=== PATIENT | male | born 1975 | race Caucasian/White ===

== ENCOUNTER 2021-01-02 13:32 | Inpatient (IN) | payer OTHER ==
[~2021-01-02] VITALS: Ht 172.7 cm; Wt 87.5 kg
[2021-01-02 15:10] LABS: CHLORIDE 98 mEq/L (98-107)
[2021-01-02 15:12] LABS: HEMATOCRIT. 35.1 % (42.0-52.0); MEAN CORPUSCULAR HEMOGLOBIN 31.4 pg (28.0-32.0); PLATELET 303 x1000/uL (130-400); RED BLOOD CELL COUNT 3.81 mill/uL (4.7-6.1); RED CELL DISTRIBUTION WIDTH 13.5 % (11.6-14.6)
[2021-01-02 16:15] LABS: PLATELET ESTIMATE NORMAL
[2021-01-02] MEDS ORDERED: SODIUM CHLORIDE 0.9% 1,000 ML IV ONE (16:15)
[2021-01-02] MEDS ORDERED: AZITHROMYCIN 500 MG in DEXT 5% WATER 250 ML IV SCH (16:30)
[2021-01-02] MEDS ORDERED: CEFTRIAXONE 1 G PREMIX 50 ML IV ONE (16:30)
[2021-01-02 23:55] VITALS: BP 136/78
[2021-01-03] VITALS: BP 134/88
[2021-01-03] MEDS ORDERED: ALBUTEROL 6.7GM HFA INHALER ORI PRN
[2021-01-03] MEDS ORDERED: GUAIFENESIN 200MG/10ML SUGAR FREE UDC PO PRN
[2021-01-03] MEDS ORDERED: ONDANSETRON HCL 4MG/2ML INJ IV PRN
[2021-01-03] MEDS ORDERED: CLONIDINE 0.1MG TABLET PO PRN
[2021-01-03] MEDS ORDERED: MORPHINE SULFATE 2 MG/ML CPJ (NOT FOR IM USE) IV PRN
[2021-01-03] MEDS ORDERED: LORAZEPAM 2MG/ML CPJ IV PRN
[2021-01-03] MEDS ORDERED: HYDROCODONE/ACETAMINOPHEN 5/325MG TABLET PO PRN
[2021-01-03] MEDS ORDERED: DOCUSATE SODIUM 100MG CAPSULE PO PRN
[2021-01-03] MEDS ORDERED: ACETAMINOPHEN 325MG TABLET PO PRN
[2021-01-03] MEDS ORDERED: DIPHENHYDRAMINE 50MG/ML VIAL IV PRN
[2021-01-03] MEDS ORDERED: MAGNESIUM/ALUMINUM HYDROXIDE/SIMETHICONE 30ML UDC PO PRN
[2021-01-03] MEDS ORDERED: DIVA250T45 PO (00:22)
[2021-01-03] MEDS ORDERED: OLAN20TA34 PO (00:22)
[2021-01-03] MEDS ORDERED: DIVA-73 PO (00:22)
[2021-01-03] MEDS: ENOXAPARIN 40MG/0.4ML SYR SUBCUT SCH (00:57)
[2021-01-03 04:00] VITALS: BP 124/78
[2021-01-03] MEDS: SODIUM CHLORIDE 0.9% INJ 3ML FLUSH IVF SCH ×3 (06:23→21:05)
[2021-01-03 06:41] LABS: HEMATOCRIT. 38.7 % (42.0-52.0); HEMOGLOBIN. 13.1 g/dL (14.0-18.0); MEAN CORPUSCULAR HEMOGLOBIN 31.4 pg (28.0-32.0); MEAN CORPUSCULAR VOLUME 92.9 fL (80.0-94.0); MEAN PLATELET VOLUME 6.8 fl (7.4-10.4); PLATELET 341 x1000/uL (130-400); RED BLOOD CELL COUNT 4.16 mill/uL (4.7-6.1); RED CELL DISTRIBUTION WIDTH 13.7 % (11.6-14.6)
[2021-01-03 08:00] VITALS: BP 143/98
[2021-01-03 08:15] LABS: CHLORIDE 100 mEq/L (98-107)
[2021-01-03] MEDS ORDERED: CEFTRIAXONE 1 G PREMIX 50 ML IV SCH (09:00)
[2021-01-03] MEDS: DIVALPROEX SODIUM 250MG DR TABLET PO SCH ×2 (11:58→16:30)
[2021-01-03 12:00] VITALS: BP 135/98
[2021-01-03 14:03] LABS: PLATELET ESTIMATE NORMAL
[2021-01-03 16:00] VITALS: BP 128/88
[2021-01-03] MEDS: CEFTRIAXONE 1,000 MG in DEXTROSE 5% WATER 50 ML IV SCH (16:29)
[2021-01-03] MEDS: AZITHROMYCIN 500 MG in DEXT 5% WATER 250 ML IV SCH (16:29)
[2021-01-03] MEDS ORDERED: AZITHROMYCIN 500 MG in DEXT 5% WATER 250 ML IV SCH (17:00)
[2021-01-03 20:00] VITALS: BP 155/92
[2021-01-03] MEDS ORDERED: MEDICATION NOT ON FORMULARY EA (Olanzapine 1 TAB) PO SCH (21:00)
[2021-01-03] MEDS: OLANZAPINE 10MG TABLET PO SCH (21:05)
[2021-01-04] VITALS: BP 147/92
[2021-01-04] MEDS: ENOXAPARIN 40MG/0.4ML SYR SUBCUT SCH ×2 (00:57→23:05)
[2021-01-04 04:00] VITALS: BP 141/84
[2021-01-04] MEDS: SODIUM CHLORIDE 0.9% INJ 3ML FLUSH IVF SCH ×3 (05:32→21:48)
[2021-01-04 08:00] VITALS: BP 146/99
[2021-01-04] MEDS: DIVALPROEX SODIUM 250MG DR TABLET PO SCH ×2 (08:34→17:53)
[2021-01-04 11:14] LABS: HEMATOCRIT 34.4 % (42.0-52.0); HEMOGLOBIN 11.5 g/dL (14.0-18.0); MEAN CORPUSCULAR VOLUME 92.4 fL (80.0-94.0); PLATELET 354 x1000/uL (130-400); RED BLOOD CELL COUNT 3.72 mill/uL (4.7-6.1); RED CELL DISTRIBUTION WIDTH 13.4 % (11.6-14.6)
[2021-01-04 12:00] VITALS: BP 143/89
[2021-01-04 12:44] LABS: CLARITY URINE CLEAR (CLEAR); COLOR URINE YELLOW (YELLOW); KETONES URINE 1+ (NEGATIVE); LEUKOCYTE ESTERASE URINE NEGATIVE (NEGATIVE); NITRITE URINE NEGATIVE (NEGATIVE); OCCULT BLOOD URINE NEGATIVE (NEGATIVE); PH URINE 7.5 (4.5-8.0); PROTEIN URINE NEGATIVE (NEGATIVE); SPECIFIC GRAVITY URINE 1.011 (1.005-1.030); UROBILINOGEN URINE 0.2 E.U./dL (0.2-1.0)
[2021-01-04 16:00] VITALS: BP 148/108
[2021-01-04] MEDS: AZITHROMYCIN 500 MG in DEXT 5% WATER 250 ML IV SCH (16:06)
[2021-01-04] MEDS: CEFTRIAXONE 1,000 MG in DEXTROSE 5% WATER 50 ML IV SCH (17:51)
[2021-01-04 20:00] VITALS: BP 151/93
[2021-01-04] MEDS: OLANZAPINE 10MG TABLET PO SCH (20:00)
[2021-01-05] VITALS: BP 153/93
[2021-01-05 04:00] VITALS: BP 131/86
[2021-01-05] MEDS: SODIUM CHLORIDE 0.9% INJ 3ML FLUSH IVF SCH (05:27)
[2021-01-05 08:00] VITALS: BP 149/90
[2021-01-05] MEDS: DIVALPROEX SODIUM 250MG DR TABLET PO SCH (09:09)
== END 2021-01-05 11:25 | disposition home or self-care (01) | DRG 194 ==
LOC: ER 13:59 → 7WST 18:13 → ENRESERV 22:31 → 5WST 01-04 05:06
PROVIDERS: ADMIT Internal Medicine; ATTEND Internal Medicine
DX: J18.9 Pneumonia, unspecified organism (principal); E87.1 Hypo-osmolality and hyponatremia; F20.9 Schizophrenia, unspecified; Z20.822 Contact with and (suspected) exposure to COVID-19; F31.9 Bipolar disorder, unspecified; Z88.8 Allergy status to other drugs, medicaments and biological substances; Z79.899 Other long term (current) drug therapy
CPT/HCPCS: 36415; 71045; 80048; 80053; 81003; 83605; 84484; 85025; 85027; 93005; 99285; C1893; J0456; J0696; J1650; J7030; J7060; U0003